=== PATIENT | female | born 1990 | race Caucasian/White ===

== ENCOUNTER 2024-04-20 05:25 | Emergency (ER) | payer MEDICAID ==
[~2024-04-20] VITALS: Ht 160 cm; Wt 59.0 kg
[2024-04-20 05:38] VITALS: BP_SYST 120; PULSE 91; RESP 18; TEMP 97.4; O2SAT 99
[2024-04-20 05:58] LABS: BILIRUBIN,URINE 1+ (NEGATIVE); COLOR,URINE YELLOW (YELLOW); GLUCOSE,URINE NEGATIVE (NEGATIVE); KETONES,URINE NEGATIVE (NEGATIVE); NITRITE, URINE NEGATIVE (NEGATIVE); PROTEIN URINE 1+ (NEGATIVE); UROBILINOGEN,URINE 0.2 (0.2-1.0)
[2024-04-20 06:06] LABS: BACTERIA,URINE MODERATE /HPF (None Seen); BLOOD, URINE TRACE (NEGATIVE); CLARITY/URINE SLIGHTLY CLOUDY (CLEAR); LEUKOCYTE ESTERASE ,URINE 1+ (NEGATIVE); WBC,URINE 20-50 /HPF (0-3)
[2024-04-20 06:10] LABS: BASOPHILS % (AUTO) 0.2 % (0.0-2.0); EOSINOPHILS # (AUTO) 0.1 K/uL (0.0-0.4); EOSINOPHILS % (AUTO) 0.4 % (0.0-4.0); HEMATOCRIT 44.9 % (36-48); LYMPHOCYTES % (AUTO) 6.3 % (20.5-51.5); MEAN CORPUSCULAR HEMOGLOBIN 29 pg (27-31); MEAN CORPUSCULAR HGB CONC 33 % (32-36); MEAN CORPUSCULAR VOLUME 88 fL (79.0-98.0); MONOCYTES # (AUTO) 1.1 K/uL (0.0-1.0); MONOCYTES % (AUTO) 6.9 % (1.7-9.3); NEUTROPHILS % (AUTO) 86.2 % (40.0-70.0); PLATELET COUNT (AUTO) 387 K/uL (130-430); RED BLOOD CELL COUNT(AUTO) 5.11 MIL/uL (4.2-6.2); RED CELL DISTRIBUTION WIDTH 12.6 % (9.0-15.0); WHITE BLOOD COUNT (AUTO) 16.3 K/uL (4.8-10.8)
[2024-04-20 06:36] LABS: ALBUMIN 3.2 g/dL (3.4-4.8); BILIRUBIN,DIRECT 0.3 mg/dL (0.0-0.3); CALCIUM 8.6 mg/dL (8.4-11.0); CREATININE 0.87 mg/dL (0.55-1.30); TOTAL BILIRUBIN 1.1 mg/dL (0.0-1.0)
[2024-04-20] MEDS: KETOROLAC TROMETHAMINE 30 MG VIAL IVP ONE (06:36)
[2024-04-20] MEDS: cefTRIAXone 1 GM IVPB PREMIX 50 ML IV ONE (06:36)
[2024-04-20] MEDS: NACL 0.9% 2,000 ML IV ONE (06:37)
[2024-04-20] MEDS: ONDANSETRON HCL 4 MG/2 ML VIAL IVP ONE (09:06)
[2024-04-20] MEDS: MORPHINE 4 MG INJ. 4 MG/ML VIAL IVP ONE (09:08)
[2024-04-20] MEDS ORDERED: NITR-85 PO (11:13)
[2024-04-20] MEDS ORDERED: HYDR-3917 PO (11:13)
[2024-04-20 11:33] VITALS: BP_SYST 131; PULSE 81; RESP 18; TEMP 97.4; O2SAT 99
[2024-04-27] MEDS ORDERED: METR-154 PO (10:23)
== END 2024-04-20 11:32 | disposition home or self-care (01) ==
LOC: SED 05:25
DX: R10.84 Generalized abdominal pain (principal); Z79.899 Other long term (current) drug therapy
CPT/HCPCS: 99285; 74176; 96365; 96375; 76856; 80076; 80048; 81001; 83690; 85025; 87040; 87086; 36415; 83605; J0696; J1885; J2405; J2270; 81000; 81015

== ENCOUNTER 2024-06-27 14:24 | Emergency (ER) | payer MEDICAID ==
[~2024-06-27] VITALS: Ht 170.2 cm; Wt 59.0 kg
[~2024-06-27 14:24] MED LIST: HYDR-3917 PO; METR-154 PO; NITR-85 PO
[2024-06-27 14:29] VITALS: BP_SYST 133; PULSE 82; RESP 20; TEMP 98.3; O2SAT 98
[2024-06-27 15:21] LABS: BLOOD, URINE NEGATIVE (NEGATIVE); CLARITY/URINE CLEAR (CLEAR); COLOR,URINE YELLOW (YELLOW); GLUCOSE,URINE NEGATIVE (NEGATIVE); KETONES,URINE 3+ (NEGATIVE); LEUKOCYTE ESTERASE ,URINE NEGATIVE (NEGATIVE); NITRITE, URINE NEGATIVE (NEGATIVE); PH,URINE 5.5 (5.0-8.0); PROTEIN URINE 1+ (NEGATIVE); UROBILINOGEN,URINE 0.2 (0.2-1.0)
[2024-06-27 15:33] LABS: BILIRUBIN,URINE 2+ (NEGATIVE)
[2024-06-27 15:34] LABS: BACTERIA,URINE FEW /HPF (None Seen); MUCUS,URINE 1+ /LPF (None Seen); RBC,URINE NONE SEEN /HPF (0-3); WBC,URINE 0-3 /HPF (0-3)
[2024-06-27] MEDS: IBUPROFEN 800 MG TABLET PO ONE (15:36)
[2024-06-27] MEDS: HYDROcodone/ACETAMIN 10-325 MG TAB PO ONE (15:37)
[2024-06-27 15:38] LABS: HEMATOCRIT 44.5 % (36-48); HEMOGLOBIN 14.7 g/dL (12.0-16.0); MEAN CORPUSCULAR HEMOGLOBIN 29 pg (27-31); MEAN CORPUSCULAR HGB CONC 33 % (32-36); MEAN CORPUSCULAR VOLUME 87 fL (79.0-98.0); PLATELET COUNT (AUTO) 368 K/uL (130-430); RED CELL DISTRIBUTION WIDTH 13.8 % (9.0-15.0)
[2024-06-27 15:49] LABS: INR 1.1 (0.8-1.2)
[2024-06-27 15:50] LABS: SERUM HCG (QUALITATIVE) NEGATIVE (NEGATIVE)
[2024-06-27 16:05] LABS: BAND % (MANUAL) 5 % (0-6); BASOPHILS % (MANUAL) 0 % (0-2); EOSINOPHILS % (MANUAL) 0 % (0-7); LYMPHOCYTES % (MANUAL) 4 % (20-46); MONOCYTES % (MANUAL) 1 % (0-11); PLATELET ESTIMATE ADEQUATE (ADEQUATE)
[2024-06-27 16:32] LABS: ALBUMIN 4.1 g/dL (3.4-4.8); BILIRUBIN,DIRECT 0.4 mg/dL (0.0-0.3); CALCIUM 9.3 mg/dL (8.4-11.0); CREATININE 0.74 mg/dL (0.55-1.30); POTASSIUM 4.2 mmol/L (3.5-5.1); TOTAL BILIRUBIN 1.8 mg/dL (0.0-1.0); TOTAL PROTEIN, SERUM 7.7 g/dL (6.4-8.3)
[2024-06-27] MEDS ORDERED: HYDR-3927 PO (17:14)
[2024-06-27] MEDS ORDERED: IBUP-1969 PO (17:14)
[2024-06-27] MEDS ORDERED: CEPH-548 PO (17:14)
[2024-06-27] MEDS ORDERED: NITR-85 PO (17:14)
[2024-06-27] MEDS: cefTRIAXone 1 GM in LIDOCAINE 1%, 20 ML MDV 2.1 ML IM ONE (18:03)
[2024-06-27 18:17] VITALS: BP_SYST 131; PULSE 80; RESP 16; TEMP 98.2; O2SAT 99
== END 2024-06-27 18:00 | disposition home or self-care (01) ==
LOC: SED 14:24
DX: R10.2 Pelvic and perineal pain (principal); D72.829 Elevated white blood cell count, unspecified
CPT/HCPCS: 99285; 74176; 85027; 80076; 80048; 81001; 82150; 84703; 83690; 85007; 85610; 85730; 36415; 81025; 96372; 83605; 82397; 81000; 81015; J0696; J2001

== ENCOUNTER 2024-06-28 12:56 | Emergency (ER) | payer MEDICAID ==
[~2024-06-28] VITALS: Ht 170.2 cm; Wt 59.0 kg
[~2024-06-28 12:56] MED LIST changes: +CEPH-548 PO; +HYDR-3927 PO; +IBUP-1969 PO
[2024-06-28 13:00] VITALS: BP_SYST 140; PULSE 102; RESP 18; TEMP 98.2; O2SAT 97
[2024-06-28 13:34] LABS: BASOPHILS % (AUTO) 0.3 % (0.0-2.0); EOSINOPHILS # (AUTO) 0.1 K/uL (0.0-0.4); HEMOGLOBIN 13.4 g/dL (12.0-16.0); LYMPHOCYTES # (AUTO) 1.6 K/uL (1.0-5.5); LYMPHOCYTES % (AUTO) 12.7 % (20.5-51.5); MEAN CORPUSCULAR HEMOGLOBIN 29 pg (27-31); MEAN CORPUSCULAR HGB CONC 33 % (32-36); MEAN CORPUSCULAR VOLUME 88 fL (79.0-98.0); MONOCYTES % (AUTO) 7.5 % (1.7-9.3); NEUTROPHILS % (AUTO) 78.5 % (40.0-70.0); PLATELET COUNT (AUTO) 350 K/uL (130-430); RED BLOOD CELL COUNT(AUTO) 4.67 MIL/uL (4.2-6.2); RED CELL DISTRIBUTION WIDTH 13.2 % (9.0-15.0)
[2024-06-28 13:35] LABS: WHITE BLOOD COUNT (AUTO) 12.7 K/uL (4.8-10.8)
[2024-06-28 14:17] LABS: ANION GAP 9 (5-15); CALCIUM 9.3 mg/dL (8.4-11.0); CARBON DIOXIDE 28 mmol/L (23-29); CHLORIDE 98 mmol/L (98-107); CREATININE 0.81 mg/dL (0.55-1.30); GFR AFRICAN AMERICAN 105 mL/min (>90); GLUCOSE 105 mg/dL (74-106); POTASSIUM 4.2 mmol/L (3.5-5.1); SODIUM SERUM 135 mmol/L (136-145); UREA NITROGEN, BLOOD 17 mg/dL (8-21)
[2024-06-28 14:19] LABS: GFR NON AFRICAN-AMERICAN 87 mL/min (>90)
[2024-06-28 15:04] LABS: BILIRUBIN,URINE 1+ (NEGATIVE); BLOOD, URINE NEGATIVE (NEGATIVE); COLOR,URINE YELLOW (YELLOW); GLUCOSE,URINE NEGATIVE (NEGATIVE); KETONES,URINE 2+ (NEGATIVE); LEUKOCYTE ESTERASE ,URINE NEGATIVE (NEGATIVE); NITRITE, URINE NEGATIVE (NEGATIVE); PH,URINE 6.5 (5.0-8.0); PROTEIN URINE 2+ (NEGATIVE); UROBILINOGEN,URINE 0.2 (0.2-1.0)
[2024-06-28 15:06] LABS: CLARITY/URINE HAZY (CLEAR)
[2024-06-28 15:23] VITALS: BP_SYST 132; PULSE 86; RESP 16; TEMP 98.2; O2SAT 98
[2024-06-28 15:41] LABS: RBC,URINE 0-3 /HPF (0-3)
[2024-06-28 15:42] LABS: BACTERIA,URINE MODERATE /HPF (None Seen)
[2024-06-28 15:43] LABS: MUCUS,URINE 2+ /LPF (None Seen)
== END 2024-06-28 15:23 | disposition home or self-care (01) ==
LOC: SED 12:56
DX: D72.829 Elevated white blood cell count, unspecified (principal); R10.30 Lower abdominal pain, unspecified
CPT/HCPCS: 36415; 80048; 81000; 81001; 81015; 81025; 83605; 85025; 87086; 99283